=== PATIENT | female | born 2000 | race Caucasian/White ===

== ENCOUNTER 2020-03-27 13:09 | Emergency (ER) | payer SELFPAY ==
[2020-03-27] MEDS ORDERED: Ondansetron 4 MG/2 ML SDV IVPUSH ONE (13:44)
[2020-03-27] MEDS ORDERED: Sodium Chloride 0.9% 10 ML Syringe FLUSH PRN (13:44)
[2020-03-27] MEDS ORDERED: Sodium Chloride 0.9% 1,000 ML IV STA (13:44)
[2020-03-27] MEDS ORDERED: HYDROmorphone 0.5 MG/0.5 ML Syringe IVPUSH ONE ×2 (13:45→15:23)
--- NOTE | 2020-03-27 13:47 | EDM.PDOC ---
<Marline Jimenez - Last Filed: 03/27/20 14:01> ED HPI GENERAL MEDICAL PROBLEM - General Chief Complaint: Abdominal Pain Stated Complaint: R SIDE LOWER ABD PAIN Time Seen by Provider: 03/27/20 13:21 Source of Information: Reports: Patient History Limitations: Reports: No Limitations - History of Present Illness INITIAL COMMENTS - FREE TEXT/NARRATIVE: Toma Phan is a pleasant 20 year old female presenting to the ED with complains of right lower quadrant pain. She states the pain started two days ago after she and her fiance had intercourse. She noticed the pain after she urinated. She denies dyspareunia. She states that the pain is located in her lower right quadrant that radiates into her pelvis. She rates the pain as 8/10 and is a constant, sharp pain. The patient admits the pain is worse when active, but gets better with rest and a heating pad. She took Tylenol this AM for pain relief, but it was ineffective. Patient denies any bloody or abnormal discharge. Last menstrual period was two weeks ago. She states that she has history of ovarian cysts, but she had bleeding and a different kind of pain than this current time. She denies any dysuria, hematuria, vomiting, diarrhea Onset: Other (Pain started two days ago) Duration: Constant Location: Reports: Other (Right lower quadrant abdominal pain that radiates to her pelvis) Quality: Reports: Sharp Severity: Severe (8/10 pain) Improves with: Reports: Heat Therapy, Rest Worsens with: Reports: Movement Context: Reports: Other (Patient started to experience pain after having in tercourse with her fiance. ) Associated Symptoms: Reports: No Other Symptoms Right Lower Abdominal Pain Score (Numeric/FACES): 8 - Related Data Allergies Allergy/AdvReac Type Severity Reaction Status Date / Time amoxicillin Allergy Rash Verified 03/27/20 14:04 Home Meds: Home Meds Hydrocodone/Acetaminophen [Hydrocodone-Acetamin 5-325 mg] 1 - 2 each PO Q6HR PRN #20 tablet 03/27/20 [Rx] Past Medical History - Past Health History Medical/Surgical History: Denies Medical/Surgical History - Past Surgical History HEENT Surgical History: Reports: Myringotomy w Tube(s) GI Surgical History: Reports: Appendectomy Social & Family History - Tobacco Use Tobacco Use Status *Q: Never Tobacco User ED ROS GENERAL - Review of Systems Review Of Systems: Comprehensive ROS is negative, except as noted in HPI. ED EXAM, GI/ABD - Physical Exam Exam Limited By: No Limitations General Appearance: Alert, WD/WN, No Apparent Distress Throat/Mouth: Normal Inspection, Normal Lips, Normal Teeth, Normal Gums, Normal Oropharynx, Normal Voice, No Airway Compromise Head: Atraumatic, Normocephalic Neck: Normal Inspection, Supple, Non-Tender, Full Range of Motion Respiratory/Chest: No Respiratory Distress, Lungs Clear, Normal Breath Sounds, No Accessory Muscle Use, Chest Non-Tender Cardiovascular: Normal Peripheral Pulses, Regular Rate, Rhythm, No Edema, No Gallop, No JVD, No Murmur, No Rub GI/Abdominal Exam: Normal Bowel Sounds, Soft, No Distention, Other (Right lower quadrant tenderness to palpation ) Extremities: Normal Inspection, Normal Range of Motion Neurological: Alert, Oriented, CN II-XII Intact Psychiatric: Normal Affect, Normal Mood Skin Exam: Warm, Dry, Intact, Normal Color, No Rash Lymphatic: No Adenopathy Course - Re-Assessments/Exams Free Text/Narrative Re-Assessment/Exam: 03/27/20 13:53 Will order Hcg to determine status, abdominal US, and do pelvic exam. Patient would like something for nausea and will give 4 mg Zofran. Routine labs are ordered as well as GC/Chlamydia. 03/27/20 14:01 Hcg was negative so we will order transvaginal non OB ultrasound. Departure - Departure Disposition: Home, Self-Care 01 Clinical Impression: Ovarian cyst Qualifiers: Laterality: right Qualified Code(s): N83.201 - Unspecified ovarian cyst, right side - Discharge Information Prescriptions: Hydrocodone/Acetaminophen [Hydrocodone-Acetamin 5-325 mg] 1 - 2 each PO Q6HR PRN #20 tablet PRN Reason: Pain Referrals: PCP,None [Primary Care Provider] - Nataliia Doherty MD [Physician] - 3 Days Forms: ED Department Discharge Additional Instructions: Take tylenol or motrin for pain. If that does not help try the hydrocodone. Follow up with Dr Doherty this week. Please return if you are not worse. Sepsis Event Note (ED) - Evaluation Sepsis Screening Result: No Definite Risk <Harris Costello - Last Filed: 03/27/20 15:31> ED ROS GENERAL - Review of Systems Review Of Systems: See Below ED EXAM, GI/ABD - Physical Exam Exam: See Below Course - Vital Signs Last Recorded V/S: Last Vital Signs Temp 98.2 F 03/27/20 13:27 Pulse 72 03/27/20 13:27 Resp 16 03/27/20 13:27 BP 125/75 03/27/20 13:27 Pulse Ox 100 03/27/20 13:27 - Orders/Labs/Meds Orders: Active Orders 24 hr Category Date Time Status Pelvic Exam, Set Up [RC] ASDIRECTED Care 03/27/20 13:45 Active Peripheral IV Care [RC] . DIRECTED Care 03/27/20 13:45 Active Transvaginal Non OB [US] Stat Exams 03/27/20 13:59 Taken GC/CHLAMYDIA BY PCR [MOLEC] Stat Lab 03/27/20 13:46 Stop Req WET PREP [MYC] Stat Lab 03/27/20 13:46 Stop Req Sodium Chloride 0.9% [Saline Flush] Med 03/27/20 13:44 Active 10 ml FLUSH ASDIRECTED PRN ED Antiemetic Medication Reflex [OM.PC] Stat Oth 03/27/20 13:45 Ordered Peripheral IV Insertion Adult [OM.PC] Stat Oth 03/27/20 13:44 Ordered Medication Orders Sodium Chloride (Saline Flush) 10 ml FLUSH ASDIRECTED PRN PRN Reason: Keep Vein Open Last Admin: 03/27/20 14:13 Dose: 10 ml Documented by: CANDIS Labs: Laboratory Tests 03/27/20 03/27/20 03/27/20 Range/Units 13:32 13:32 14:00 WBC 9.04 (3.98-10.04) K/mm3 RBC 4.42 (3.98-5.22) M/mm3 Hgb 13.7 (11.2-15.7) gm/dl Hct 41.1 (34.1-44.9) % MCV 93.0 (79.4-94.8) fl MCH 31.0 (25.6-32.2) pg MCHC 33.3 (32.2-35.5) g/dl RDW Std Deviation 40.8 (36.4-46.3) fL Plt Count 368 (182-369) K/mm3 MPV 8.9 L (9.4-12.3) fl Neut % (Auto) 57.7 (34.0-71.1) % Lymph % (Auto) 34.6 (19.3-51.7) % [place] % (Auto) 6.3 (4.7-12.5) % Eos % (Auto) 1.1 (0.7-5.8) Baso % (Auto) 0.2 (0.1-1.2) % Neut # (Auto) 5.21 (1.56-6.13) K/mm3 Lymph # (Auto) 3.13 (1.18-3.74) K/mm3 [place] # (Auto) 0.57 H (0.24-0.36) K/mm3 Eos # (Auto) 0.10 (0.04-0.36) K/mm3 Baso # (Auto) 0.02 (0.01-0.08) K/mm3 Sodium (136-145) mEq/L Potassium (3.5-5.1) mEq/L Chloride (98-107) mEq/L Carbon Dioxide (21-32) mEq/L Anion Gap (5-15) BUN (7-18) mg/dL Creatinine (0.55-1.02) mg/dL Est Cr Clr Drug Dosing mL/min Estimated GFR (MDRD) (>60) mL/min BUN/Creatinine Ratio (14-18) Glucose (74-106) mg/dL Calcium (8.5-10.1) mg/dL Total Bilirubin (0.2-1.0) mg/dL AST (15-37) U/L ALT (14-59) U/L Alkaline Phosphatase (46-116) U/L Total Protein (6.4-8.2) g/dl Albumin (3.4-5.0) g/dl Globulin gm/dL Albumin/Globulin Ratio (1-2) Lipase (73-393) U/L Urine Color Light yellow (Yellow) Urine Appearance Clear (Clear) Urine pH 7.5 (5.0-8.0) Ur Specific [place] 1.015 (1.005-1.030) Urine Protein Negative (Negative) Urine Glucose (UA) Negative (Negative) Urine Ketones Negative (Negative) Urine Occult Blood Negative (Negative) Urine Nitrite Negative (Negative) Urine Bilirubin Negative (Negative) Urine Urobilinogen 0.2 (0.2-1.0) Ur Leukocyte Esterase Negative (Negative) Urine RBC 0-5 (0-5) /hpf Urine WBC 0-5 (0-5) /hpf Ur Squamous Epith Cells 0-5 (0-5) /hpf Urine Bacteria Few (FEW) /hpf Urine Mucus Not seen (FEW) /hpf Urine HCG, Qual Negative (NEGATIVE) 03/27/20 Range/Units 14:00 WBC (3.98-10.04) K/mm3 RBC (3.98-5.22) M/mm3 Hgb (11.2-15.7) gm/dl Hct (34.1-44.9) % MCV (79.4-94.8) fl MCH (25.6-32.2) pg MCHC (32.2-35.5) g/dl RDW Std Deviation (36.4-46.3) fL Plt Count (182-369) K/mm3 MPV (9.4-12.3) fl Neut % (Auto) (34.0-71.1) % Lymph % (Auto) (19.3-51.7) % [place] % (Auto) (4.7-12.5) % Eos % (Auto) (0.7-5.8) Baso % (Auto) (0.1-1.2) % Neut # (Auto) (1.56-6.13) K/mm3 Lymph # (Auto) (1.18-3.74) K/mm3 [place] # (Auto) (0.24-0.36) K/mm3 Eos # (Auto) (0.04-0.36) K/mm3 Baso # (Auto) (0.01-0.08) K/mm3 Sodium 140 (136-145) mEq/L Potassium 3.7 (3.5-5.1) mEq/L Chloride 104 (98-107) mEq/L Carbon Dioxide 26 (21-32) mEq/L Anion Gap 13.7 (5-15) BUN 10 (7-18) mg/dL Creatinine 0.7 (0.55-1.02) mg/dL Est Cr Clr Drug Dosing 90.55 mL/min Estimated GFR (MDRD) > 60 (>60) mL/min BUN/Creatinine Ratio 14.3 (14-18) Glucose 89 (74-106) mg/dL Calcium 9.2 (8.5-10.1) mg/dL Total Bilirubin 0.3 (0.2-1.0) mg/dL AST 10 L (15-37) U/L ALT 18 (14-59) U/L Alkaline Phosphatase 56 (46-116) U/L Total Protein 7.2 (6.4-8.2) g/dl Albumin 4.0 (3.4-5.0) g/dl Globulin 3.2 gm/dL Albumin/Globulin Ratio 1.3 (1-2) Lipase 53 L (73-393) U/L Urine Color (Yellow) Urine Appearance (Clear) Urine pH (5.0-8.0) Ur Specific [place] (1.005-1.030) Urine Protein (Negative) Urine Glucose (UA) (Negative) Urine Ketones (Negative) Urine Occult Blood (Negative) Urine Nitrite (Negative) Urine Bilirubin (Negative) Urine Urobilinogen (0.2-1.0) Ur Leukocyte Esterase (Negative) Urine RBC (0-5) /hpf Urine WBC (0-5) /hpf Ur Squamous Epith Cells (0-5) /hpf Urine Bacteria (FEW) /hpf Urine Mucus (FEW) /hpf Urine HCG, Qual (NEGATIVE) Meds: Medications Generic Name Dose Route Start Last Admin Trade Name Shin PRN Reason Stop Dose Admin Sodium Chloride 10 ml 03/27/20 13:44 03/27/20 14:13 Saline Flush FLUSH 10 ml ASDIRECTED PRN Administration Keep Vein Open Discontinued Medications Generic Name Dose Route Start Last Admin Trade Name Shin PRN Reason Stop Dose Admin Hydromorphone HCl 0.5 mg 03/27/20 13:45 03/27/20 14:10 Dilaudid IVPUSH 03/27/20 13:46 0.5 mg ONETIME ONE Administration Sodium Chloride 1,000 mls @ 1,000 mls/hr 03/27/20 13:44 03/27/20 14:11 Normal Saline IV 03/27/20 14:43 1,000 mls/hr .BOLUS STA Administration Ondansetron HCl 4 mg 03/27/20 13:44 03/27/20 14:10 Zofran IVPUSH 03/27/20 13:45 4 mg ONETIME ONE Administration - Re-Assessments/Exams Free Text/Narrative Re-Assessment/Exam: 03/27/20 15:23 I examined the patient myself and I agree with Marline's assessment and plan. Her CBC and CMP look good. Her HCG is negative. Her UA shows no UTI or blood. The US shows hemorrhagic cyst noted on the right ovary measuring 2.1 X 1.7 X 1.9cm. No left adnexal masses. No intrauterine masses. A small amount of free fluid is noted within the cul-de-sac and cervical canal. She still has pain after getting the US. I ordered dilaudid 0.5mg IV. I will get her something for pain and have her follow up with Dr Doherty. Departure - Departure Time of Disposition: 15:30 Condition: Good - Discharge Information *PRESCRIPTION DRUG MONITORING PROGRAM REVIEWED*: Not Applicable *COPY OF PRESCRIPTION DRUG MONITORING REPORT IN PATIENT NOAH: Not Applicable Sepsis Event Note (ED) - Focused Exam Vital Signs: Vital Signs Temp Pulse Resp BP Pulse Ox 03/27/20 13:27 98.2 F 72 16 125/75 100 - My Orders Last 24 Hours: My Active Orders 03/27/20 13:44 Sodium Chloride 0.9% [Saline Flush] 10 ml FLUSH ASDIRECTED PRN Peripheral IV Insertion Adult [OM.PC] Stat 03/27/20 13:45 Pelvic Exam, Set Up [RC] ASDIRECTED Peripheral IV Care [RC] . DIRECTED ED Antiemetic Medication Reflex [OM.PC] Stat 03/27/20 13:46 GC/CHLAMYDIA BY PCR [MOLEC] Stat WET PREP [MYC] Stat - Assessment/Plan Last 24 Hours: My Active Orders 03/27/20 13:44 Sodium Chloride 0.9% [Saline Flush] 10 ml FLUSH ASDIRECTED PRN Peripheral IV Insertion Adult [OM.PC] Stat 03/27/20 13:45 Pelvic Exam, Set Up [RC] ASDIRECTED Peripheral IV Care [RC] . DIRECTED ED Antiemetic Medication Reflex [OM.PC] Stat 03/27/20 13:46 GC/CHLAMYDIA BY PCR [MOLEC] Stat WET PREP [MYC] Stat
--- NOTE | 2020-03-28 11:42 | US ---
Pelvic ultrasound: Multiple real-time images were obtained transvaginally. Comparison: No prior pelvic imaging is available. Findings: Uterus is anteverted. Minimal fluid is seen within the cervical canal. Endometrial thickness is 9.1 mm. No myometrial abnormality is appreciated. Small amount of fluid is seen within the cul-de-sac. Small hemorrhagic cyst is noted within the right ovary measuring about 2.1 cm. Left ovary is normal. Measurements: Uterus: Length 8.4 cm, AP height 3.7 cm,transverse width 4.7 cm Right ovary: 4.2 x 2.1 x 2.5 cm Left ovary: 4.6 x 2.0 x 1.4 cm Impression: 1. Findings believed to be incidental as described above. Diagnostic code #2 I agree with preliminary report from [facility], finalized on 03/27/20, 4:15 PM [employer]
== END 2020-03-27 16:04 | disposition home or self-care (01) ==
LOC: JD.ED 13:09
DX: N83.201 Unspecified ovarian cyst, right side (principal); Z88.0 Allergy status to penicillin
CPT/HCPCS: 36415; 76830; 80053; 81001; 81025; 83690; 85025; 96374; 96375; 96376; 99284; J1170; J2405; J7030; 99283